=== PATIENT | female | born 1975 | race Caucasian/White ===

== ENCOUNTER 2024-01-25 03:40 | Inpatient (IN) | payer OTHER ==
[~2024-01-25] VITALS: Ht 167.6 cm; Wt 70.5 kg
[2024-01-25 04:05] LABS: BASOPHILS % 0.6 % (0.0-2.0); EOSINOPHILS % 1.7 % (0.0-5.0); HEMATOCRIT. 39.3 % (36.0-48.0); HEMOGLOBIN. 13.6 g/dL (12.0-16.0); LYMPHOCYTES % 26.3 % (20.0-50.0); MEAN CORPUSCULAR HEMOGLOBIN 37.8 pg (28.0-32.0); MEAN CORPUSCULAR HGB CONC 34.6 g/dL (31.0-37.0); MEAN CORPUSCULAR VOLUME 109.3 fL (81.0-99.0); MEAN PLATELET VOLUME 7.5 fl (7.4-10.4); MONOCYTES % 8.8 % (2.0-8.0); NEUTROPHILS % 62.6 % (40.0-76.0); PLATELET 343 x1000/uL (130-400); RED BLOOD CELL COUNT 3.59 mill/uL (4.2-5.4); RED CELL DISTRIBUTION WIDTH 17.3 % (11.6-14.6); WHITE BLOOD COUNT 9.8 x1000/uL (4.5-11.0)
[2024-01-25 04:16] LABS: CHLORIDE 104 mEq/L (98-107); POTASSIUM 3.9 mEq/L (3.5-5.1); SODIUM 138 mEq/L (136-145)
[2024-01-25 04:17] LABS: CALCIUM 10.2 mg/dL (8.7-10.4); CARBON DIOXIDE 23 mEq/L (21-32)
[2024-01-25 04:22] LABS: CREATININE 0.6 mg/dL (0.6-1.0); GLUCOSE 112 mg/dL (70-105); UREA NITROGEN BLOOD 9 mg/dL (9-23)
[2024-01-25 04:24] LABS: CREATINE KINASE 110 IU/L (34-145)
[2024-01-25 04:28] LABS: HCG SCREEN NEGATIVE
[2024-01-25 04:29] LABS: DIFFERENTIAL COMMENT 1
[2024-01-25 04:32] LABS: ETHANOL BLOOD 290 mg/dL (<10)
[2024-01-25 05:28] LABS: CLARITY URINE CLEAR (CLEAR); COLOR URINE YELLOW (YELLOW); GLUCOSE URINE NEGATIVE (NEGATIVE); KETONES URINE NEGATIVE (NEGATIVE); LEUKOCYTE ESTERASE URINE NEGATIVE (NEGATIVE); NITRITE URINE NEGATIVE (NEGATIVE); OCCULT BLOOD URINE 1+ (NEGATIVE); PROTEIN URINE NEGATIVE (NEGATIVE); SPECIFIC GRAVITY URINE 1.006 (1.005-1.030); UROBILINOGEN URINE 0.2 E.U./dL (0.2-1.0)
[2024-01-25 05:43] LABS: BACTERIA URINE TRACE; RBC URINE NONE SEEN /hpf (0-2); SQUAMOUS EPITHELIAL CELL URINE FEW /lpf (RARE/1+); WBC URINE NONE SEEN /hpf (0-2)
[2024-01-25] MEDS ORDERED: FOLIC ACID 1 MG, THIAMINE HCL 100 MG, MVI, ADULT NO.1 10 ML in DEXTROSE 5% WATER 1,000 ML IV ONE (05:45)
[2024-01-25 05:58] LABS: *AMPHETAMINES SCREEN URINE NEGATIVE (NEGATIVE)
[2024-01-25 05:59] LABS: *BARBITURATES SCREEN URINE NEGATIVE (NEGATIVE); *BENZODIAZEPINES SCREEN URINE NEGATIVE (NEGATIVE); *COCAINE SCREEN URINE NEGATIVE (NEGATIVE); CANNABINOID URINE SCREEN NEGATIVE (NEGATIVE); METHADONE URINE SCREEN NEGATIVE (NEGATIVE); OPIATES URINE SCREEN NEGATIVE (NEGATIVE); PHENCYCLIDINE URINE SCREEN NEGATIVE (NEGATIVE)
[2024-01-25 06:00] LABS: ECSTASY MDMA SCREEN URINE NEGATIVE (NEGATIVE)
[2024-01-25 08:00] VITALS: BP_SYST 106; BP_SYST 126; BP_DIAS 51; BP_DIAS 65; PULSE 105; PULSE 56; RESP 16; RESP 19; TEMP 36.72516; TEMP 36.83628; O2SAT 100; O2SAT 95
[2024-01-25 09:58] VITALS: BP 114/71; PULSE 107; RESP 18; TEMP 36.6404
[2024-01-25] MEDS: FOLIC ACID 1 MG, THIAMINE HCL 100 MG, MVI, ADULT NO.1 10 ML in DEXTROSE 5% WATER 1,000 ML IV ONE (10:56)
[2024-01-25] MEDS ORDERED: MVI, ADULT NO.1 10 ML, FOLIC ACID 1 MG, THIAMINE HCL 100 MG in SODIUM CHLORIDE 0.9% 1,0... IV SCH (11:30)
[2024-01-25] MEDS ORDERED: ONDANSETRON HCL 4MG/2ML INJ IV PRN (11:30)
[2024-01-25] MEDS ORDERED: HYDROCODONE/ACETAMINOPHEN 5/325MG TABLET PO PRN (11:30)
[2024-01-25 12:00] VITALS: BP 106/61; PULSE 99; RESP 18; TEMP 36.72516; O2SAT 95
[2024-01-25] MEDS: PANTOPRAZOLE SODIUM 40 MG/VIAL IV SCH (12:37)
[2024-01-25] MEDS: ENOXAPARIN 40MG/0.4ML SYR SUBCUT SCH (12:47)
[2024-01-25 16:00] VITALS: BP 146/104; PULSE 106; RESP 19; TEMP 36.72516; O2SAT 98
[2024-01-25 20:00] VITALS: BP 142/96; PULSE 87; RESP 18; TEMP 36.50292; O2SAT 97
[2024-01-25] MEDS ORDERED: ZOLPIDEM TARTRATE 5MG TABLET PO PRN (21:00)
[2024-01-25] MEDS: SODIUM CHLORIDE 0.9% 1,000 ML IV SCH (22:29)
[2024-01-26] VITALS: BP 138/94; PULSE 90; RESP 18; TEMP 35.89176; O2SAT 96
[2024-01-26 04:00] VITALS: BP 140/97; PULSE 89; RESP 18; TEMP 36.55848; O2SAT 97
[2024-01-26] MEDS: ACETAMINOPHEN 325MG TABLET PO PRN (06:36)
[2024-01-26 08:00] VITALS: BP 136/92; PULSE 78; RESP 19; TEMP 36.3918; O2SAT 95
[2024-01-26 08:35] LABS: BASOPHILS % 0.4 % (0.0-2.0); DIFFERENTIAL COMMENT 0; EOSINOPHILS % 1.3 % (0.0-5.0); HEMOGLOBIN. 12.6 g/dL (12.0-16.0); LYMPHOCYTES % 19.8 % (20.0-50.0); MEAN CORPUSCULAR HEMOGLOBIN 35.6 pg (28.0-32.0); MEAN CORPUSCULAR HGB CONC 33.1 g/dL (31.0-37.0); MEAN CORPUSCULAR VOLUME 107.7 fL (81.0-99.0); MEAN PLATELET VOLUME 8.1 fl (7.4-10.4); MONOCYTES % 6.7 % (2.0-8.0); NEUTROPHILS % 71.8 % (40.0-76.0); PLATELET 331 x1000/uL (130-400); RED BLOOD CELL COUNT 3.53 mill/uL (4.2-5.4); RED CELL DISTRIBUTION WIDTH 16.4 % (11.6-14.6); WHITE BLOOD COUNT 8.5 x1000/uL (4.5-11.0)
[2024-01-26 08:49] LABS: CARBON DIOXIDE 25 mEq/L (21-32); CHLORIDE 106 mEq/L (98-107); POTASSIUM 3.8 mEq/L (3.5-5.1); SODIUM 139 mEq/L (136-145)
[2024-01-26 08:50] LABS: CALCIUM 9.1 mg/dL (8.7-10.4)
[2024-01-26 08:55] LABS: GLUCOSE 79 mg/dL (70-105); UREA NITROGEN BLOOD 7 mg/dL (9-23)
[2024-01-26 08:58] LABS: VITAMIN B12 SERUM 264 pg/mL (211-911)
[2024-01-26] MEDS: THIAMINE HCL 100MG TABLET PO SCH (09:02)
[2024-01-26 09:39] LABS: CREATININE 0.4 mg/dL (0.6-1.0)
[2024-01-26 12:00] VITALS: BP 132/90; PULSE 80; RESP 20; TEMP 36.3918; O2SAT 95
[2024-01-26 16:00] VITALS: BP 142/97; PULSE 85; RESP 19; TEMP 36.72516; O2SAT 97
[2024-01-26 18:23] LABS: FOLIC ACID (FOLATE) SERUM 14.38 ng/mL (>5.38)
[2024-01-26] MEDS ORDERED: GADOTERATE MEGLUMINE 5 MMOL/10 ML VIAL IV ONE (18:53)
[2024-01-27 08:00] VITALS: BP 144/100; PULSE 79; RESP 18; TEMP 36.72516; O2SAT 98
[2024-01-27 12:00] VITALS: BP 135/88; PULSE 71; RESP 18; TEMP 36.89184; O2SAT 97
[2024-01-27 16:00] VITALS: BP 137/82; PULSE 77; RESP 19; TEMP 37.05852; O2SAT 97
[2024-01-27] MEDS: CYANOCOBALAMIN 1000MCG/ML VIAL IM SCH (17:39)
[2024-01-27] MEDS: FOLIC ACID 1MG TABLET PO SCH (17:39)
[2024-01-27 20:00] VITALS: BP 138/99; PULSE 99; RESP 20; TEMP 36.3918; O2SAT 95
[2024-01-28] VITALS: BP 138/95; RESP 20; TEMP 36.44736; O2SAT 98
[2024-01-28 04:00] VITALS: BP 158/103; PULSE 101; RESP 20; TEMP 36.28068; O2SAT 95
[2024-01-28 08:00] VITALS: BP 147/103; PULSE 90; RESP 19; TEMP 36.72516; O2SAT 96
[2024-01-28] MEDS: CLONIDINE 0.1MG TABLET PO PRN (09:33)
[2024-01-28 12:00] VITALS: BP 131/86; PULSE 89; RESP 19; TEMP 36.61404; O2SAT 96
[2024-01-28 16:00] VITALS: BP 138/83; PULSE 91; RESP 19; TEMP 36.6696; O2SAT 100
[2024-01-28 20:00] VITALS: BP 143/99; PULSE 98; RESP 20; TEMP 36.72516; O2SAT 96
[2024-01-29] VITALS: BP 143/96; PULSE 90; RESP 20; TEMP 36.00288; O2SAT 100
[2024-01-29 04:00] VITALS: BP 138/96; PULSE 90; RESP 20; TEMP 36.50292; O2SAT 96
[2024-01-29 08:00] VITALS: BP 134/95; PULSE 89; RESP 20; TEMP 36.78072; O2SAT 98
[2024-01-29 12:00] VITALS: BP 130/76; PULSE 86; RESP 20; TEMP 36.61404; O2SAT 94
[2024-01-29 16:00] VITALS: BP 139/97; PULSE 89; RESP 19; TEMP 36.72516; O2SAT 95
[2024-01-29 20:00] VITALS: BP 144/98; PULSE 90; RESP 20; TEMP 37.503; O2SAT 96
[2024-01-30] VITALS: BP 149/100; PULSE 88; RESP 20; TEMP 36.61404; O2SAT 98
[2024-01-30 08:00] VITALS: BP 153/99; PULSE 92; RESP 18; TEMP 36.83628; O2SAT 98
[2024-01-30 12:00] VITALS: BP 140/96; PULSE 96; RESP 18; TEMP 36.83628; O2SAT 97
[2024-01-30 16:00] VITALS: BP 141/95; PULSE 93; RESP 18; TEMP 37.05852; O2SAT 99
[2024-01-30 20:00] VITALS: BP 128/84; PULSE 96; RESP 20; TEMP 36.61404; O2SAT 96
[2024-01-31] VITALS: BP 148/100; PULSE 104; RESP 20; TEMP 36.3918; O2SAT 98
[2024-01-31 04:00] VITALS: BP 148/100; PULSE 104; RESP 20; TEMP 36.3918; O2SAT 98
[2024-01-31 08:00] VITALS: BP 135/93; PULSE 92; RESP 18; TEMP 36.61404; O2SAT 97
[2024-01-31 12:00] VITALS: BP 146/93; PULSE 90; RESP 18; TEMP 36.6696; O2SAT 97
[2024-01-31 16:00] VITALS: BP 150/99; PULSE 96; RESP 18; TEMP 36.55848; O2SAT 97
[2024-01-31 20:00] VITALS: BP 117/82; PULSE 90; RESP 18; TEMP 36.61404; O2SAT 96
[2024-02-01] VITALS: BP_SYST 117; BP_SYST 95; BP_DIAS 56; BP_DIAS 82; PULSE 85; PULSE 90; RESP 18; RESP 20; TEMP 36.50292; TEMP 36.61404; O2SAT 96; O2SAT 98
[2024-02-01 08:00] VITALS: BP 135/95; PULSE 86; RESP 19; TEMP 36.50292; O2SAT 97
[2024-02-01 12:00] VITALS: BP 129/89; PULSE 79; RESP 18; TEMP 36.3918; O2SAT 99
[2024-02-01 16:00] VITALS: BP 144/100; PULSE 86; RESP 19; TEMP 36.3918; O2SAT 97
[2024-02-02 08:00] VITALS: BP 135/90; PULSE 87; RESP 18; TEMP 36.3918; O2SAT 97
[2024-02-02 12:00] VITALS: BP 125/89; PULSE 100; RESP 19; TEMP 36.50292; O2SAT 100
[2024-02-02 16:00] VITALS: BP 146/93; PULSE 87; RESP 18; TEMP 36.3918; O2SAT 100
[2024-02-02 20:00] VITALS: BP 138/74; PULSE 93; RESP 18; TEMP 36.28068; O2SAT 98
[2024-02-03] VITALS: BP 140/84; PULSE 84; RESP 17; TEMP 36.44736; O2SAT 100
[2024-02-03 04:00] VITALS: BP 140/95; PULSE 83; RESP 18; TEMP 36.55848; O2SAT 96
[2024-02-03 08:00] VITALS: BP 150/98; PULSE 87; RESP 18; TEMP 36.72516; O2SAT 98
[2024-02-03 12:00] VITALS: BP 133/94; PULSE 91; RESP 18; TEMP 36.55848; O2SAT 98
[2024-02-03 16:00] VITALS: BP 139/98; PULSE 92; RESP 18; TEMP 36.55848; O2SAT 97
[2024-02-03 20:00] VITALS: BP 140/90; PULSE 74; RESP 16; TEMP 36.16956; O2SAT 100
[2024-02-04] VITALS: BP 144/84; PULSE 82; RESP 19; TEMP 36.78072; O2SAT 99
[2024-02-04 04:00] VITALS: BP 140/93; PULSE 92; RESP 18; TEMP 36.28068; O2SAT 97
[2024-02-04 08:00] VITALS: BP 138/96; PULSE 105; RESP 20; TEMP 36.33624; O2SAT 99
[2024-02-04] MEDS ORDERED: CYAN50004 SL (10:49)
[2024-02-04] MEDS ORDERED: FOLI-43 PO (10:49)
[2024-02-04] MEDS ORDERED: THIA100T72 PO (10:49)
[2024-02-04 16:00] VITALS: BP 140/102; PULSE 97; RESP 20; TEMP 36.72516; O2SAT 100
[2024-02-04 20:00] VITALS: BP 142/96; PULSE 92; RESP 20; TEMP 36.6696; O2SAT 100
[2024-02-05] VITALS: BP 134/92; PULSE 100; RESP 20; TEMP 36.33624; O2SAT 95
[2024-02-05 04:00] VITALS: BP 146/101; PULSE 92; RESP 20; TEMP 35.89176; O2SAT 95
[2024-02-05 08:00] VITALS: BP 142/98; PULSE 98; RESP 18; TEMP 36.72516; O2SAT 98
[2024-02-05 12:00] VITALS: BP 135/93; PULSE 93; RESP 17; TEMP 36.50292; O2SAT 96
[2024-02-05 16:00] VITALS: BP 138/90; PULSE 90; RESP 18; TEMP 36.50292; O2SAT 96
[2024-02-05 20:00] VITALS: BP 132/88; PULSE 91; RESP 18; TEMP 36.78072; O2SAT 96
[2024-02-06] VITALS: BP 141/97; PULSE 93; RESP 18; TEMP 36.89184; O2SAT 96
[2024-02-06 04:00] VITALS: BP 145/102; PULSE 96; RESP 18; TEMP 37.16964; O2SAT 96
[2024-02-06 08:00] VITALS: BP 138/98; PULSE 103; RESP 18; TEMP 36.9474; O2SAT 95
[2024-02-06 12:00] VITALS: BP 141/96; PULSE 97; RESP 17; TEMP 37.00296; O2SAT 96
[2024-02-06 20:00] VITALS: BP 124/81; PULSE 94; RESP 20; TEMP 36.16956; O2SAT 96
[2024-02-07] VITALS: BP 134/92; PULSE 99; RESP 21; TEMP 36.16956; O2SAT 97
[2024-02-07 04:00] VITALS: BP 123/85; PULSE 99; RESP 19; TEMP 36.22512; O2SAT 99
[2024-02-08] VITALS: BP 145/94; PULSE 97; RESP 20; TEMP 36.72516; O2SAT 97
[2024-02-08 04:00] VITALS: BP 134/91; PULSE 94; RESP 20; TEMP 36.61404; O2SAT 97
[2024-02-08 08:00] VITALS: BP 127/84; PULSE 84; RESP 20; TEMP 36.72516; O2SAT 98
[2024-02-08 12:00] VITALS: BP 130/80; PULSE 82; RESP 19; TEMP 36.61404; O2SAT 98
[2024-02-08 16:00] VITALS: BP 130/89; PULSE 92; RESP 19; TEMP 36.78072; O2SAT 96
[2024-02-08 20:00] VITALS: BP 135/88; PULSE 79; RESP 20; TEMP 36.6696; O2SAT 98
[2024-02-09] VITALS: BP 132/92; PULSE 86; RESP 18; TEMP 36.55848; O2SAT 99
[2024-02-09 04:00] VITALS: BP 128/84; PULSE 82; RESP 18; TEMP 36.72516; O2SAT 98
[2024-02-09 08:00] VITALS: BP 137/94; PULSE 89; RESP 18; TEMP 36.50292; O2SAT 98
[2024-02-09] MEDS: CYANOCOBALAMIN 1000MCG/ML VIAL IM SCH (09:00)
[2024-02-09 12:00] VITALS: BP 131/88; PULSE 89; RESP 18; TEMP 36.61404; O2SAT 99
[2024-02-09 16:00] VITALS: BP 134/91; PULSE 96; RESP 18; TEMP 36.72516; O2SAT 98
[2024-02-09 20:00] VITALS: BP 132/90; PULSE 93; RESP 20; TEMP 36.44736; O2SAT 100
[2024-02-10] VITALS: BP 130/85; PULSE 98; RESP 20; TEMP 36.3918; O2SAT 98
[2024-02-10 04:00] VITALS: BP 120/91; PULSE 88; RESP 20; TEMP 36.22512; O2SAT 99
[2024-02-10 08:00] VITALS: BP 129/90; PULSE 83; RESP 18; TEMP 36.6696; O2SAT 96
[2024-02-10 12:00] VITALS: BP 123/89; PULSE 91; RESP 17; TEMP 36.28068; O2SAT 97
[2024-02-10 16:00] VITALS: BP 122/88; PULSE 91; RESP 17; TEMP 36.50292; O2SAT 97
[2024-02-10 20:00] VITALS: BP 138/95; PULSE 85; RESP 20; TEMP 36.28068; O2SAT 98
[2024-02-11 00:06] VITALS: BP 137/92; PULSE 84; RESP 20; TEMP 36.22512; O2SAT 99
[2024-02-11 04:00] VITALS: BP 134/88; PULSE 80; RESP 20; TEMP 36.50292; O2SAT 100
[2024-02-11 08:00] VITALS: BP 130/91; PULSE 89; RESP 19; TEMP 36.50292; O2SAT 97
[2024-02-11 12:00] VITALS: BP 129/89; PULSE 86; RESP 18; TEMP 36.33624; O2SAT 97
[2024-02-11 16:00] VITALS: BP 129/77; PULSE 83; RESP 18; TEMP 36.28068; O2SAT 97
[2024-02-11 20:00] VITALS: BP 127/82; PULSE 91; RESP 16; TEMP 36.83628; O2SAT 99
[2024-02-12] VITALS (7 sets, daily range): BP systolic 118–172; BP diastolic 75–93; PULSE 75–96; RESP 16–20; TEMP 36.61404–37.00296; O2SAT 96–100
[2024-02-13] VITALS: BP 128/85; PULSE 83; RESP 18; TEMP 36.61404; O2SAT 96
[2024-02-13 04:00] VITALS: BP 136/93; PULSE 83; RESP 18; TEMP 36.3918; O2SAT 96
[2024-02-13 08:00] VITALS: BP 136/98; PULSE 80; RESP 20; TEMP 36.72516; O2SAT 95
[2024-02-13 12:00] VITALS: BP 126/83; PULSE 72; RESP 19; TEMP 36.72516; O2SAT 98
[2024-02-13 15:56] VITALS: BP 136/88; PULSE 83; RESP 20; TEMP 36.78072; O2SAT 96
[2024-02-13 20:00] VITALS: BP 131/89; PULSE 82; RESP 18; TEMP 36.50292; O2SAT 97
[2024-02-14] VITALS: BP 128/78; PULSE 78; RESP 18; TEMP 36.61404; O2SAT 96
[2024-02-14 04:00] VITALS: BP 130/88; PULSE 80; RESP 18; TEMP 36.50292; O2SAT 97
[2024-02-14 08:00] VITALS: BP 134/94; PULSE 86; RESP 19; TEMP 36.3918; O2SAT 98
[2024-02-14 12:00] VITALS: BP 134/92; PULSE 87; RESP 18; TEMP 36.22512; O2SAT 97
[2024-02-14 16:00] VITALS: BP 128/87; PULSE 98; RESP 18; TEMP 36.33624; O2SAT 97
[2024-02-14 20:00] VITALS: BP 142/90; PULSE 90; RESP 19; TEMP 36.50292; O2SAT 98
[2024-02-15] VITALS: BP 127/82; PULSE 91; RESP 19; TEMP 36.50292; O2SAT 96
[2024-02-15 04:00] VITALS: BP 128/81; PULSE 85; RESP 19; TEMP 36.50292; O2SAT 96
[2024-02-15 08:00] VITALS: BP 120/83; PULSE 87; RESP 18; TEMP 36.89184; O2SAT 100
[2024-02-15 12:00] VITALS: BP 135/85; PULSE 87; RESP 18; TEMP 36.72516; O2SAT 97
[2024-02-15 16:00] VITALS: BP 125/89; PULSE 80; RESP 18; TEMP 36.6696; O2SAT 100
[2024-02-15 20:00] VITALS: BP 119/69; PULSE 77; RESP 18; TEMP 36.78072; O2SAT 99
[2024-02-16] VITALS: BP 128/70; PULSE 70; RESP 18; TEMP 36.22512; O2SAT 100
[2024-02-16 04:00] VITALS: BP 130/68; PULSE 69; RESP 19; TEMP 37.00296; O2SAT 99
[2024-02-16 08:00] VITALS: BP 120/88; PULSE 81; RESP 19; TEMP 37.39188; O2SAT 99
[2024-02-16] MEDS: FAMOTIDINE 20MG/2ML VIAL IV SCH (08:36)
[2024-02-16 12:00] VITALS: BP 133/93; PULSE 89; RESP 19; TEMP 36.78072; O2SAT 99
[2024-02-16 16:00] VITALS: BP 132/88; PULSE 100; RESP 20; TEMP 36.50292; O2SAT 100
[2024-02-16 20:00] VITALS: BP 119/79; PULSE 82; RESP 18; TEMP 36.6696; O2SAT 100
[2024-02-17] VITALS: BP 123/88; PULSE 79; RESP 19; TEMP 36.72516; O2SAT 100
[2024-02-17 04:00] VITALS: BP 128/84; PULSE 89; RESP 18; TEMP 36.44736; O2SAT 98
[2024-02-17 08:00] VITALS: BP 138/97; PULSE 79; RESP 18; TEMP 36.83628; O2SAT 100
[2024-02-17 12:00] VITALS: BP 129/96; PULSE 79; RESP 18; TEMP 36.44736; O2SAT 100
[2024-02-17 16:00] VITALS: BP 135/82; PULSE 87; RESP 18; TEMP 36.89184; O2SAT 100
[2024-02-17 20:00] VITALS: BP 138/86; PULSE 89; RESP 18; TEMP 36.72516; O2SAT 100
[2024-02-18] VITALS: BP 137/94; PULSE 91; RESP 20; TEMP 36.72516; O2SAT 98
[2024-02-18 04:00] VITALS: BP 132/88; PULSE 81; RESP 20; TEMP 36.6696; O2SAT 100
[2024-02-18 20:00] VITALS: BP 126/84; PULSE 91; RESP 19; TEMP 36.55848; O2SAT 98
[2024-02-19] VITALS: BP 128/89; PULSE 94; RESP 18; TEMP 36.78072; O2SAT 99
[2024-02-19 04:00] VITALS: BP 126/84; PULSE 89; RESP 17; TEMP 36.83628; O2SAT 99
[2024-02-19 08:00] VITALS: BP 119/76; PULSE 88; RESP 20; TEMP 37.05852; O2SAT 98
[2024-02-19 12:00] VITALS: BP 122/75; PULSE 91; RESP 20; TEMP 36.78072; O2SAT 99
[2024-02-19 16:00] VITALS: BP 117/71; PULSE 87; RESP 19; TEMP 36.72516; O2SAT 99
[2024-02-19 20:00] VITALS: BP 128/84; PULSE 95; RESP 18; TEMP 36.3918; O2SAT 98
[2024-02-20] VITALS: BP 127/87; PULSE 89; RESP 18; TEMP 36.61404; O2SAT 100
[2024-02-20 04:00] VITALS: BP 135/94; PULSE 83; RESP 18; TEMP 37.16964; O2SAT 96
[2024-02-20 08:00] VITALS: BP 121/83; PULSE 85; RESP 20; TEMP 36.72516; O2SAT 98
[2024-02-20 12:02] VITALS: BP 125/85; PULSE 95; RESP 20; TEMP 36.72516; O2SAT 95
[2024-02-20 16:02] VITALS: BP 130/89; PULSE 65; RESP 20; TEMP 36.61404; O2SAT 99
[2024-02-20 20:00] VITALS: BP 127/87; PULSE 84; RESP 18; TEMP 36.33624; O2SAT 97
[2024-02-21] VITALS: BP 122/86; PULSE 82; RESP 18; TEMP 36.50292; O2SAT 98
[2024-02-21 08:00] VITALS: BP 134/93; PULSE 83; RESP 18; TEMP 36.6696; O2SAT 97
[2024-02-21 12:00] VITALS: BP 118/84; PULSE 86; RESP 18; TEMP 36.83628; O2SAT 97
[2024-02-21 16:00] VITALS: BP 137/82; PULSE 94; RESP 18; TEMP 36.44736; O2SAT 96
[2024-02-21 20:00] VITALS: BP 125/80; PULSE 87; RESP 20; TEMP 36.78072; O2SAT 96
[2024-02-22] VITALS: BP 132/86; PULSE 91; RESP 20; TEMP 37.28076; O2SAT 95
[2024-02-22 08:00] VITALS: BP 150/100; PULSE 108; RESP 19; TEMP 36.61404; O2SAT 95
[2024-02-22 12:00] VITALS: BP 121/78; PULSE 86; RESP 18; TEMP 36.50292; O2SAT 98
[2024-02-22 16:00] VITALS: BP 125/86; PULSE 108; RESP 19; TEMP 37.16964; O2SAT 97
[2024-02-22 20:00] VITALS: BP 120/84; PULSE 95; RESP 18; TEMP 37.2252; O2SAT 97
[2024-02-22] MEDS: ACETAMINOPHEN 325MG TABLET PO PRN (21:55)
[2024-02-23] VITALS: BP 121/82; PULSE 95; RESP 18; TEMP 37.61412; O2SAT 99
[2024-02-23 04:00] VITALS: BP 131/88; PULSE 102; RESP 18; TEMP 37.7808; O2SAT 99
[2024-02-23 08:00] VITALS: BP 132/92; PULSE 102; RESP 20; TEMP 36.50292; O2SAT 97
[2024-02-23 12:00] VITALS: BP 139/99; PULSE 81; RESP 19; TEMP 36.00288; O2SAT 99
[2024-02-23] MEDS: DIPHENHYDRAMINE 50MG CAPSULE PO PRN (12:25)
[2024-02-23 16:00] VITALS: BP 128/82; PULSE 84; RESP 18; TEMP 36.3918; O2SAT 98
[2024-02-23 20:00] VITALS: BP 138/92; PULSE 92; RESP 18; TEMP 36.3918; O2SAT 98
[2024-02-24] VITALS: BP 139/89; PULSE 94; RESP 17; TEMP 36.55848; O2SAT 96
[2024-02-24 04:00] VITALS: BP 133/87; PULSE 98; RESP 17; TEMP 36.72516; O2SAT 96
[2024-02-24 08:00] VITALS: BP 136/95; PULSE 101; RESP 19; TEMP 36.50292; O2SAT 97
[2024-02-24 12:00] VITALS: BP 135/86; PULSE 80; RESP 18; TEMP 36.83628; O2SAT 97
[2024-02-24 16:00] VITALS: BP 132/82; PULSE 85; RESP 18; TEMP 36.50292; O2SAT 98
[2024-02-24 20:00] VITALS: BP 124/85; PULSE 85; RESP 18; TEMP 37.00296; O2SAT 95
[2024-02-25 04:00] VITALS: BP 124/84; PULSE 83; RESP 18; TEMP 36.72516; O2SAT 99
[2024-02-25 08:00] VITALS: BP 141/90; PULSE 83; RESP 18; TEMP 36.44736; O2SAT 99
[2024-02-25 12:00] VITALS: BP 125/91; PULSE 77; RESP 18; TEMP 36.3918; O2SAT 98
[2024-02-25 16:00] VITALS: BP 132/91; PULSE 83; RESP 19; TEMP 36.50292; O2SAT 98
[2024-02-25 17:03] VITALS: BP 132/91; PULSE 83; TEMP 97.7; O2SAT 98
== END 2024-02-25 18:35 | disposition home health service (06) | DRG 52 ==
LOC: ER 03:40 → 5WST 05:39 → EDBEDREQTM 05:52 → EDBEDREQ 05:52 → 6EST 08:37
PROVIDERS: ADMIT Internal Medicine; ATTEND Internal Medicine
DX: G82.20 Paraplegia, unspecified (principal); N39.0 Urinary tract infection, site not specified; R26.9 Unspecified abnormalities of gait and mobility; I10 Essential (primary) hypertension; R20.2 Paresthesia of skin; G62.9 Polyneuropathy, unspecified; R53.81 Other malaise; R20.0 Anesthesia of skin; R31.9 Hematuria, unspecified; D52.9 Folate deficiency anemia, unspecified; R26.89 Other abnormalities of gait and mobility; F10.129 Alcohol abuse with intoxication, unspecified; Y90.9 Presence of alcohol in blood, level not specified
CPT/HCPCS: 36415; 70544; 70551; 70553; 72131; 72141; 72157; 72158; 80048; 80305; 80320; 81003; 82550; 82607; 82746; 84703; 85025; 93970; 97110; 97112; 97116; 97163; 97166; 97530; 97535; 97542; 99285; A9577; J1650; J2470; J3411; J3420; J3490; J7030; J7070; Q0163; G0480